=== PATIENT | female | born 1955 | race African-American/Black ===

== ENCOUNTER 2020-05-15 09:20 | Inpatient (IN) | payer BC ==
[2020-05-15] VITALS (8 sets, daily range): BP systolic 107–118; BP diastolic 77–88
[~2020-05-15] VITALS: Ht 172.7 cm; Wt 65.3 kg
[2020-05-15] MEDS ORDERED: ACETAMINOPHEN 325MG TABLET PO PRN (19:00)
[2020-05-15] MEDS ORDERED: DIPHENHYDRAMINE 50MG/ML VIAL IV PRN (19:00)
[2020-05-15] MEDS ORDERED: CLONIDINE 0.1MG TABLET PO PRN (19:00)
[2020-05-15] MEDS ORDERED: ONDANSETRON HCL 4MG/2ML INJ IV PRN (19:00)
[2020-05-15] MEDS ORDERED: FUROSEMIDE 40MG/4ML VIAL IVP NR (19:30)
[2020-05-15] MEDS ORDERED: HEPARIN XX SCH (20:30)
[2020-05-15] MEDS: GUAIFENESIN 200MG/10ML SUGAR FREE UDC PO PRN (20:52)
[2020-05-15] MEDS ORDERED: HEPARIN 25,000 UNITS PREMIX 250 ML IV PRN (21:00)
[2020-05-15] MEDS ORDERED: HEPARIN 5000 UNITS/ML VIAL IV PRN ×2 (21:00)
[2020-05-15 21:22] LABS: BASOPHILS % 1.2 % (0.0-2.0); EOSINOPHILS % 3.4 % (0.0-5.0); HEMOGLOBIN. 11.4 g/dL (12.0-16.0); LYMPHOCYTES % 16.5 % (20.0-50.0); MEAN CORPUSCULAR HEMOGLOBIN 28.7 pg (28.0-32.0); MEAN CORPUSCULAR VOLUME 85.7 fL (81.0-99.0); MEAN PLATELET VOLUME 7.6 fl (7.4-10.4); NEUTROPHILS % 68.9 % (40.0-76.0); PLATELET 313 x1000/uL (130-400); RED BLOOD CELL COUNT 3.97 mill/uL (4.2-5.4); RED CELL DISTRIBUTION WIDTH 14.2 % (11.6-14.6)
[2020-05-15 21:34] LABS: CHLORIDE 107 mEq/L (98-107); D-DIMER 4.06 mg/L FEU (<0.50); PARTIAL THROMBOPLASTIN TIME 24.8 sec (23.4-31.0); PROTHROMBIN TIME 10.9 sec (9.6-11.0)
[2020-05-15] MEDS ORDERED: DIAZEPAM 5 MG TABLET PO PRN (23:00)
[2020-05-15] MEDS ORDERED: POTASSIUM CHLORIDE 20MEQ/PACKET PO NR (23:00)
[2020-05-15] MEDS ORDERED: MAGNESIUM 2 G PREMIX 50 ML IV NR (23:30)
[2020-05-16] VITALS (42 sets, daily range): BP systolic 97–170; BP diastolic 16–111
[2020-05-16] MEDS: GUAIFENESIN 200MG/10ML SUGAR FREE UDC PO PRN (01:45)
[2020-05-16] MEDS: IPRATROPIUM/ALBUTEROL 0.5-3(2.5)MG/3ML NEB HHN PRN ×2 (02:26→05:37)
[2020-05-16] MEDS ORDERED: MAGNESIUM 1 G PREMIX 100 ML IV NR (03:00)
[2020-05-16 03:40] LABS: CLARITY URINE CLEAR (CLEAR); COLOR URINE YELLOW (YELLOW); KETONES URINE NEGATIVE (NEGATIVE); LEUKOCYTE ESTERASE URINE TRACE (NEGATIVE); NITRITE URINE NEGATIVE (NEGATIVE); OCCULT BLOOD URINE NEGATIVE (NEGATIVE); PROTEIN URINE NEGATIVE (NEGATIVE); SPECIFIC GRAVITY URINE 1.006 (1.005-1.030); UROBILINOGEN URINE 0.2 E.U./dL (0.2-1.0)
[2020-05-16 06:00] LABS: LDL CHOLESTEROL 78 mg/dL (5-100)
[2020-05-16 06:02] LABS: HDL CHOLESTEROL 59 mg/dL (40-59)
[2020-05-16] MEDS ORDERED: INSULIN REGULAR (DRIP) 100 UNITS in SODIUM CHLORIDE 0.9% 99 ML IV SCH (07:30)
[2020-05-16 08:31] LABS: BG BASE EXCESS 2.6 mmol/L (-2.0-2.0); BG CARBOXYHEMOGLOBIN 0.3 % (0.5-1.5); BG DEOXYHEMOGLOBIN 11.8 % (0.0-5.0); BG HCO3 ACT 27.1 mmol/L (22.0-26.0); BG METHEMOGLOBIN 0.2 % (0.0-1.5); BG OXYGEN SATURATION 88.1 % (92.0-98.5); BG OXYHEMOGLOBIN 87.7 % (94.0-97.0); BG PCO2 41.7 mmHg (35.0-45.0); BG PH 7.431 (7.350-7.450); BG PO2 54.7 mmHg (75.0-100.0); BG SAMPLE SITE RIGHT BRACHIAL; BG TOTAL HEMOGLOBIN 12.6 g/dL (12.0-18.0); BG VENT MODE ROOM AIR
[2020-05-16] MEDS ORDERED: LIDOCAINE HCL 1% 20ML VIAL (Pyxis) INJ ONE (09:40)
[2020-05-16 09:41] LABS: BASOPHILS % 0.8 % (0.0-2.0); EOSINOPHILS % 3.4 % (0.0-5.0); HEMATOCRIT. 36.6 % (36.0-48.0); HEMOGLOBIN. 11.9 g/dL (12.0-16.0); LYMPHOCYTES % 17.5 % (20.0-50.0); MEAN CORPUSCULAR HEMOGLOBIN 28.2 pg (28.0-32.0); MEAN CORPUSCULAR VOLUME 86.7 fL (81.0-99.0); MEAN PLATELET VOLUME 7.9 fl (7.4-10.4); MONOCYTES % 10.9 % (2.0-8.0); NEUTROPHILS % 67.4 % (40.0-76.0); PLATELET 327 x1000/uL (130-400); RED BLOOD CELL COUNT 4.22 mill/uL (4.2-5.4); RED CELL DISTRIBUTION WIDTH 14.5 % (11.6-14.6)
[2020-05-16 09:43] LABS: CHLORIDE 105 mEq/L (98-107)
[2020-05-16 09:49] LABS: PHOSPHORUS 3.2 mg/dL (2.5-4.9)
[2020-05-16] MEDS ORDERED: THROMBIN (BOVINE) 5000 UNITS/VIAL TOP ONE (10:42)
[2020-05-16] MEDS ORDERED: BACITRACIN 50,000 UNITS/VIAL ONE (10:43)
[2020-05-16] MEDS ORDERED: SKIN ADHESIVE 0.7 GM EA TOP ONE (11:04)
[2020-05-16] MEDS ORDERED: BUPIVACAINE HCL/PF 0.5% (5MG/ML) 10ML ONE (11:26)
[2020-05-16] MEDS ORDERED: EPINEPHRINE 5 MG in DEXT 5% WATER 245 ML IV ONE (12:00)
[2020-05-16] MEDS ORDERED: DEL NIDO ELECTROLYTE-S(PH 7.4) 1,000 ML IV ONE ×2 (12:00)
[2020-05-16] MEDS ORDERED: NOREPINEPHRINE 8 MG in DEXT 5% WATER 242 ML IV ONE (12:00)
[2020-05-16] MEDS ORDERED: CEFAZOLIN 2,000 MG in DEXT 5% WATER 100 ML IV SCH (12:00)
[2020-05-16] MEDS ORDERED: ROCURONIUM BROMIDE 10MG/ML VIAL 5ML IV ONE (12:09)
[2020-05-16] MEDS ORDERED: HYDROMORPHONE HCL/PF 2MG/ML (OR) ONE (12:10)
[2020-05-16] MEDS ORDERED: DEXAMETHASONE 4MG/ML 1ML VIAL ONE (12:21)
[2020-05-16] MEDS ORDERED: ALBUMIN HUMAN 25GM/100ML (25%) IV ONE (12:54)
[2020-05-16] MEDS ORDERED: NEOSTIGMINE METHYLSULFATE 1MG/ML 10 ML VIAL ONE (13:43)
[2020-05-16] MEDS ORDERED: GLYCOPYRROLATE 0.2 MG/ML 2ML VIAL ONE (13:43)
[2020-05-16] MEDS ORDERED: ALBUMIN HUMAN 25GM/100ML (25%) IV PRN (14:00)
[2020-05-16] MEDS ORDERED: ACETAMINOPHEN 325MG TABLET PO PRN (14:00)
[2020-05-16] MEDS ORDERED: ALBUMIN HUMAN 12.5G/250ML (5%) IV PRN (14:00)
[2020-05-16] MEDS ORDERED: HYDROMORPHONE HCL/PF 2MG/ML CPJ IV PRN (14:00)
[2020-05-16] MEDS ORDERED: ONDANSETRON HCL 4MG/2ML INJ IV PRN (14:00)
[2020-05-16] MEDS ORDERED: KETOROLAC 30MG/ML VIAL IV SCH (14:00)
[2020-05-16 14:06] LABS: BG BASE EXCESS -3.6 mmol/L (-2.0-2.0); BG CARBOXYHEMOGLOBIN 0.5 % (0.5-1.5); BG DEOXYHEMOGLOBIN 9.5 % (0.0-5.0); BG FRACTION INSPIRED OXYGEN 40; BG HCO3 ACT 22.3 mmol/L (22.0-26.0); BG METHEMOGLOBIN 0.3 % (0.0-1.5); BG OXYGEN SATURATION 90.4 % (92.0-98.5); BG OXYHEMOGLOBIN 89.7 % (94.0-97.0); BG PCO2 43.5 mmHg (35.0-45.0); BG PH 7.328 (7.350-7.450); BG PO2 66.4 mmHg (75.0-100.0); BG SAMPLE SITE ALINE; BG TOTAL HEMOGLOBIN 12.2 g/dL (12.0-18.0); BG TOTAL RESPIRATORY RATE 16 b/min; BG VENT MODE MASK - SIMPLE
[2020-05-16 14:41] LABS: HEMATOCRIT. 35.3 % (36.0-48.0); HEMOGLOBIN. 11.5 g/dL (12.0-16.0); MEAN CORPUSCULAR HEMOGLOBIN 27.7 pg (28.0-32.0); MEAN PLATELET VOLUME 7.3 fl (7.4-10.4); PLATELET 316 x1000/uL (130-400); RED BLOOD CELL COUNT 4.15 mill/uL (4.2-5.4); RED CELL DISTRIBUTION WIDTH 14.4 % (11.6-14.6)
[2020-05-16 14:47] LABS: CHLORIDE 108 mEq/L (98-107)
[2020-05-16] MEDS: MAGNESIUM HYDROXIDE 400MG/5ML 30ML UDC PO SCH ×3 (16:07→21:54)
[2020-05-16] MEDS: DOCUSATE SODIUM 100MG CAPSULE PO SCH (16:07)
[2020-05-16] MEDS: CEFAZOLIN 1000MG PREMIX 50 ML IV SCH ×2 (16:07→21:54)
[2020-05-16] MEDS: FAMOTIDINE 20MG/2ML VIAL IV SCH (16:07)
[2020-05-16] MEDS ORDERED: KCL 10MEQ/50ML PREMIX 200 ML IV PRN (16:15)
[2020-05-16] MEDS ORDERED: KCL 10MEQ/50ML PREMIX 150 ML IV PRN (16:15)
[2020-05-16] MEDS: MORPHINE SULFATE 2 MG/ML CPJ (NOT FOR IM USE) IV PRN (16:39)
[2020-05-16] MEDS: KCL 10MEQ/50ML PREMIX 100 ML IV PRN (16:39)
[2020-05-16] MEDS: MAGNESIUM 1 G PREMIX 100 ML IV PRN ×2 (16:57→20:32)
[2020-05-16] MEDS: BACITRACIN 15GM TUBE TOP SCH (17:00)
[2020-05-16] MEDS: IPRATROPIUM/ALBUTEROL 0.5-3(2.5)MG/3ML NEB HHN SCH ×2 (18:42→21:00)
[2020-05-16] MEDS: KETOROLAC 30MG/ML VIAL IV PRN (19:35)
[2020-05-16] MEDS: OXYCODONE HCL/ACETAMINOPHEN 5/325MG TABLET PO PRN (22:01)
[2020-05-16 22:47] LABS: PLATELET ESTIMATE NORMAL
[2020-05-17] VITALS (31 sets, daily range): BP systolic 82–129; BP diastolic 40–103
[2020-05-17] MEDS: IPRATROPIUM/ALBUTEROL 0.5-3(2.5)MG/3ML NEB HHN SCH ×6 (00:16→20:20)
[2020-05-17] MEDS: MORPHINE SULFATE 2 MG/ML CPJ (NOT FOR IM USE) IV PRN ×2 (00:19→04:48)
[2020-05-17] MEDS: MAGNESIUM HYDROXIDE 400MG/5ML 30ML UDC PO SCH ×4 (04:47→14:08)
[2020-05-17 05:58] LABS: BASOPHILS % 0.4 % (0.0-2.0); HEMATOCRIT. 37.3 % (36.0-48.0); HEMOGLOBIN. 12.4 g/dL (12.0-16.0); LYMPHOCYTES % 7.6 % (20.0-50.0); MEAN CORPUSCULAR VOLUME 84.5 fL (81.0-99.0); MEAN PLATELET VOLUME 7.5 fl (7.4-10.4); PLATELET 328 x1000/uL (130-400); RED BLOOD CELL COUNT 4.41 mill/uL (4.2-5.4); RED CELL DISTRIBUTION WIDTH 14.5 % (11.6-14.6)
[2020-05-17] MEDS ORDERED: MAGNESIUM 2 G PREMIX 50 ML IV PRN (06:00)
[2020-05-17] MEDS ORDERED: MAGNESIUM SULFATE 3 GM in DEXT 5% WATER 100 ML IV PRN (06:00)
[2020-05-17] MEDS: OXYCODONE HCL/ACETAMINOPHEN 5/325MG TABLET PO PRN ×4 (06:54→22:43)
[2020-05-17 06:59] LABS: CHLORIDE 104 mEq/L (98-107)
[2020-05-17] MEDS: CEFAZOLIN 1000MG PREMIX 50 ML IV SCH (07:05)
[2020-05-17] MEDS: FAMOTIDINE 20MG/2ML VIAL IV SCH (08:23)
[2020-05-17] MEDS: LEVOTHYROXINE SODIUM 125MCG TABLET PO SCH (08:24)
[2020-05-17] MEDS: DOCUSATE SODIUM 100MG CAPSULE PO SCH ×2 (08:24→17:22)
[2020-05-17] MEDS: BACITRACIN 15GM TUBE TOP SCH ×2 (09:00→17:00)
[2020-05-17] MEDS: MAGNESIUM 1 G PREMIX 100 ML IV PRN (09:05)
[2020-05-17] MEDS ORDERED: LEVO125T PO (09:11)
[2020-05-17] MEDS ORDERED: ESOM40CA PO (09:11)
[2020-05-17] MEDS: KCL 10MEQ/50ML PREMIX 100 ML IV PRN ×2 (09:16→11:12)
[2020-05-17] MEDS: GUAIFENESIN 200MG/10ML SUGAR FREE UDC PO PRN (09:37)
[2020-05-17] MEDS ORDERED: FUROSEMIDE 40MG/4ML VIAL IVP SCH (11:15)
[2020-05-17] MEDS ORDERED: HEPARIN 25,000 UNITS PREMIX 250 ML IV SCH (11:15)
[2020-05-17] MEDS ORDERED: WARFARIN SODIUM 2.5MG TABLET PO ONE (11:15)
[2020-05-17 11:25] LABS: BG BASE EXCESS 2.6 mmol/L (-2.0-2.0); BG CARBOXYHEMOGLOBIN 0.3 % (0.5-1.5); BG DEOXYHEMOGLOBIN 5.5 % (0.0-5.0); BG FRACTION INSPIRED OXYGEN 32; BG METHEMOGLOBIN 0.4 % (0.0-1.5); BG OXYGEN SATURATION 94.5 % (92.0-98.5); BG OXYHEMOGLOBIN 93.8 % (94.0-97.0); BG PCO2 40.6 mmHg (35.0-45.0); BG PO2 70.1 mmHg (75.0-100.0); BG SAMPLE SITE ALINE; BG TOTAL HEMOGLOBIN 13.3 g/dL (12.0-18.0); BG VENT MODE NASAL CANNULA
[2020-05-17] MEDS ORDERED: HEPARIN 5000 UNITS/ML VIAL IV PRN ×2 (11:30)
[2020-05-17] MEDS: HEPARIN 25,000 UNITS PREMIX 250 ML IV PRN (13:23)
[2020-05-17] MEDS: KETOROLAC 30MG/ML VIAL IV PRN (13:35)
[2020-05-17] MEDS: ACETYLCYSTEINE 100MG/ML 10% VIAL 4ML INH SCH (15:53)
[2020-05-17] MEDS ORDERED: WARFARIN SODIUM 5MG TABLET PO SCH (18:00)
[2020-05-18] VITALS (13 sets, daily range): BP systolic 94–115; BP diastolic 67–76
[2020-05-18] MEDS: IPRATROPIUM/ALBUTEROL 0.5-3(2.5)MG/3ML NEB HHN SCH ×8 (00:20→20:59)
[2020-05-18] MEDS: ACETYLCYSTEINE 100MG/ML 10% VIAL 4ML INH SCH ×3 (00:21→08:20)
[2020-05-18] MEDS: OXYCODONE HCL/ACETAMINOPHEN 5/325MG TABLET PO PRN ×5 (03:35→19:43)
[2020-05-18] MEDS: LEVOTHYROXINE SODIUM 125MCG TABLET PO SCH (06:22)
[2020-05-18 06:46] LABS: BASOPHILS % 0.8 % (0.0-2.0); EOSINOPHILS % 2.7 % (0.0-5.0); HEMATOCRIT. 37.4 % (36.0-48.0); HEMOGLOBIN. 12.1 g/dL (12.0-16.0); LYMPHOCYTES % 22.9 % (20.0-50.0); MEAN CORPUSCULAR HEMOGLOBIN 27.7 pg (28.0-32.0); MEAN CORPUSCULAR VOLUME 85.2 fL (81.0-99.0); MEAN PLATELET VOLUME 7.7 fl (7.4-10.4); MONOCYTES % 6.3 % (2.0-8.0); NEUTROPHILS % 67.3 % (40.0-76.0); PLATELET 328 x1000/uL (130-400); RED BLOOD CELL COUNT 4.39 mill/uL (4.2-5.4); RED CELL DISTRIBUTION WIDTH 14.7 % (11.6-14.6)
[2020-05-18 06:55] LABS: INR 1.1; PROTHROMBIN TIME 11.7 sec (9.6-11.0)
[2020-05-18 07:32] LABS: CHLORIDE 101 mEq/L (98-107)
[2020-05-18 07:53] LABS: PARTIAL THROMBOPLASTIN TIME 66.6 sec (23.4-31.0)
[2020-05-18] MEDS: FAMOTIDINE 20MG/2ML VIAL IV SCH (08:53)
[2020-05-18] MEDS: DOCUSATE SODIUM 100MG CAPSULE PO SCH ×2 (09:00→16:19)
[2020-05-18] MEDS: BACITRACIN 15GM TUBE TOP SCH ×2 (09:00→16:18)
[2020-05-18] MEDS ORDERED: KCL 20MEQ/100ML PREMIX 100 ML IV PRN (09:45)
[2020-05-18] MEDS: HEPARIN 25,000 UNITS PREMIX 250 ML IV PRN (10:41)
[2020-05-18] MEDS ORDERED: FUROSEMIDE 40MG/4ML VIAL IVP ONE (12:45)
[2020-05-18] MEDS: GUAIFENESIN 200MG/10ML SUGAR FREE UDC PO PRN (13:43)
[2020-05-18] MEDS ORDERED: APIXABAN 5 MG TABLET PO SCH (16:00)
[2020-05-18] MEDS ORDERED: TRAMADOL 50MG TABLET PO PRN (16:15)
[2020-05-18] MEDS: FOLIC ACID 1MG TABLET PO SCH (17:17)
[2020-05-18] MEDS: THIAMINE HCL 100MG TABLET PO SCH (17:17)
[2020-05-18] MEDS ORDERED: PHENOL/SODIUM PHENOLATE 1.4% SRPAY 177ML MM NR (18:00)
[2020-05-18] MEDS ORDERED: WARFARIN SODIUM 5MG TABLET PO SCH (18:00)
[2020-05-18] MEDS: [UNRECOGNIZED DRUG - OTHER] SSP SCH (21:00)
[2020-05-19] VITALS (12 sets, daily range): BP systolic 91–125; BP diastolic 60–81
[2020-05-19] MEDS: ACETYLCYSTEINE 100MG/ML 10% VIAL 4ML INH SCH (02:38)
[2020-05-19] MEDS: IPRATROPIUM/ALBUTEROL 0.5-3(2.5)MG/3ML NEB HHN SCH ×2 (02:38→20:29)
[2020-05-19] MEDS: OXYCODONE HCL/ACETAMINOPHEN 5/325MG TABLET PO PRN ×4 (04:32→19:31)
[2020-05-19] MEDS: LEVOTHYROXINE SODIUM 125MCG TABLET PO SCH (06:19)
[2020-05-19] MEDS ORDERED: APIXABAN 5 MG TABLET PO SCH (08:00)
[2020-05-19] MEDS: FUROSEMIDE 40MG TABLET PO SCH (08:30)
[2020-05-19] MEDS: FAMOTIDINE 20MG/2ML VIAL IV SCH (08:30)
[2020-05-19] MEDS: THIAMINE HCL 100MG TABLET PO SCH (08:31)
[2020-05-19] MEDS: FOLIC ACID 1MG TABLET PO SCH (08:31)
[2020-05-19] MEDS: DOCUSATE SODIUM 100MG CAPSULE PO SCH ×2 (08:31→16:20)
[2020-05-19] MEDS: BACITRACIN 15GM TUBE TOP SCH ×2 (09:00→16:18)
[2020-05-19] MEDS: [UNRECOGNIZED DRUG - OTHER] SSP SCH ×4 (09:11→21:11)
[2020-05-19 09:15] LABS: BASOPHILS % 0.8 % (0.0-2.0); EOSINOPHILS % 3.2 % (0.0-5.0); HEMATOCRIT. 39.7 % (36.0-48.0); HEMOGLOBIN. 13.1 g/dL (12.0-16.0); LYMPHOCYTES % 12.1 % (20.0-50.0); MEAN CORPUSCULAR HEMOGLOBIN 27.6 pg (28.0-32.0); MEAN CORPUSCULAR VOLUME 83.5 fL (81.0-99.0); MEAN PLATELET VOLUME 7.7 fl (7.4-10.4); MONOCYTES % 6.3 % (2.0-8.0); NEUTROPHILS % 77.6 % (40.0-76.0); PLATELET 357 x1000/uL (130-400); RED BLOOD CELL COUNT 4.76 mill/uL (4.2-5.4); RED CELL DISTRIBUTION WIDTH 14.5 % (11.6-14.6)
[2020-05-19 09:26] LABS: CHLORIDE 99 mEq/L (98-107)
[2020-05-19 09:27] LABS: INR 1.1; PROTHROMBIN TIME 12.2 sec (9.6-11.0)
[2020-05-19] MEDS: APIXABAN 5 MG TABLET PO SCH (16:20)
[2020-05-20] VITALS (12 sets, daily range): BP systolic 93–126; BP diastolic 61–74
[2020-05-20] MEDS: OXYCODONE HCL/ACETAMINOPHEN 5/325MG TABLET PO PRN ×4 (00:03→18:49)
[2020-05-20] MEDS: IPRATROPIUM/ALBUTEROL 0.5-3(2.5)MG/3ML NEB HHN SCH ×6 (00:23→20:38)
[2020-05-20] MEDS: LEVOTHYROXINE SODIUM 125MCG TABLET PO SCH (06:29)
[2020-05-20 08:26] LABS: INR 1.1
[2020-05-20] MEDS: DOCUSATE SODIUM 100MG CAPSULE PO SCH ×2 (08:39→16:20)
[2020-05-20] MEDS: FAMOTIDINE 20MG TABLET PO SCH (08:40)
[2020-05-20] MEDS: FUROSEMIDE 40MG TABLET PO SCH (08:40)
[2020-05-20] MEDS: FOLIC ACID 1MG TABLET PO SCH (08:40)
[2020-05-20] MEDS: APIXABAN 5 MG TABLET PO SCH ×2 (08:40→16:20)
[2020-05-20] MEDS: THIAMINE HCL 100MG TABLET PO SCH (08:40)
[2020-05-20] MEDS: [UNRECOGNIZED DRUG - OTHER] SSP SCH ×4 (08:46→20:27)
[2020-05-20] MEDS: GUAIFENESIN 200MG/10ML SUGAR FREE UDC PO PRN ×3 (08:49→20:29)
[2020-05-20] MEDS: BACITRACIN 15GM TUBE TOP SCH ×2 (09:00→16:17)
[2020-05-20] MEDS ORDERED: PROM6.2514 MT (12:10)
[2020-05-21] MEDS: IPRATROPIUM/ALBUTEROL 0.5-3(2.5)MG/3ML NEB HHN SCH ×4 (00:31→12:35)
[2020-05-21 01:02] VITALS: BP 108/68
[2020-05-21 02:11] VITALS: BP 112/77
[2020-05-21] MEDS: OXYCODONE HCL/ACETAMINOPHEN 5/325MG TABLET PO PRN ×3 (02:17→13:49)
[2020-05-21] MEDS: LEVOTHYROXINE SODIUM 125MCG TABLET PO SCH (06:07)
[2020-05-21 06:08] VITALS: BP 116/65
[2020-05-21 07:09] LABS: BASOPHILS % 0.8 % (0.0-2.0); EOSINOPHILS % 3.3 % (0.0-5.0); HEMATOCRIT. 36.4 % (36.0-48.0); HEMOGLOBIN. 12.1 g/dL (12.0-16.0); LYMPHOCYTES % 10.5 % (20.0-50.0); MEAN CORPUSCULAR HEMOGLOBIN 28.1 pg (28.0-32.0); MEAN CORPUSCULAR VOLUME 84.3 fL (81.0-99.0); MEAN PLATELET VOLUME 7.4 fl (7.4-10.4); MONOCYTES % 12.8 % (2.0-8.0); NEUTROPHILS % 72.6 % (40.0-76.0); PLATELET 349 x1000/uL (130-400); RED BLOOD CELL COUNT 4.31 mill/uL (4.2-5.4); RED CELL DISTRIBUTION WIDTH 14.8 % (11.6-14.6)
[2020-05-21 07:21] LABS: CHLORIDE 99 mEq/L (98-107)
[2020-05-21 08:57] VITALS: BP 90/71
[2020-05-21] MEDS: FOLIC ACID 1MG TABLET PO SCH (08:58)
[2020-05-21] MEDS: FAMOTIDINE 20MG TABLET PO SCH (08:58)
[2020-05-21] MEDS: THIAMINE HCL 100MG TABLET PO SCH (08:58)
[2020-05-21] MEDS: APIXABAN 5 MG TABLET PO SCH (08:58)
[2020-05-21] MEDS: DOCUSATE SODIUM 100MG CAPSULE PO SCH (09:00)
[2020-05-21] MEDS: BACITRACIN 15GM TUBE TOP SCH (09:00)
[2020-05-21] MEDS: FUROSEMIDE 40MG TABLET PO SCH (09:00)
[2020-05-21] MEDS: GUAIFENESIN 200MG/10ML SUGAR FREE UDC PO PRN (10:33)
[2020-05-21] MEDS ORDERED: APIX5TAB PO (11:37)
[2020-05-21] MEDS ORDERED: FURO40TA5 PO (11:37)
[2020-05-21] MEDS ORDERED: OXYC1TAB21 PO (11:37)
[2020-05-21] MEDS ORDERED: FAMO20TA8 PO (11:37)
[2020-05-21] MEDS ORDERED: LEVO125T8 PO (11:37)
[2020-05-21] MEDS ORDERED: TRAM50TA3 PO (11:37)
[2020-05-21 12:59] VITALS: BP 104/80
[2020-05-21 13:49] VITALS: BP 111/86
== END 2020-05-21 15:00 | disposition home or self-care (01) | DRG 270 ==
LOC: CVICU 09:20 → 3WST 05-17 15:35
PROVIDERS: ADMIT Internal Medicine; ATTEND Internal Medicine
PROC: 0W9D00Z Drainage of Pericardial Cavity with Drainage Device, Open Approach (ICD-10-PCS; principal; 2020-05-16)
PROC: 05HY33Z Insertion of Infusion Device into Upper Vein, Percutaneous Approach (ICD-10-PCS; 2020-05-16)
PROC: B54MZZA Ultrasonography of Right Upper Extremity Veins, Guidance (ICD-10-PCS; 2020-05-16)
DX: I31.3 Pericardial effusion (noninflammatory) (principal); I26.99 Other pulmonary embolism without acute cor pulmonale; I50.33 Acute on chronic diastolic (congestive) heart failure; C34.92 Malignant neoplasm of unspecified part of left bronchus or lung; I42.2 Other hypertrophic cardiomyopathy; I31.4 Cardiac tamponade; E03.9 Hypothyroidism, unspecified; F17.210 Nicotine dependence, cigarettes, uncomplicated; F10.20 Alcohol dependence, uncomplicated; J45.909 Unspecified asthma, uncomplicated; J44.9 Chronic obstructive pulmonary disease, unspecified; I11.0 Hypertensive heart disease with heart failure; D72.829 Elevated white blood cell count, unspecified; I07.1 Rheumatic tricuspid insufficiency; Z90.710 Acquired absence of both cervix and uterus; G89.4 Chronic pain syndrome; Z87.19 Personal history of other diseases of the digestive system; Z20.822 Contact with and (suspected) exposure to COVID-19; Z79.01 Long term (current) use of anticoagulants; Z79.890 Hormone replacement therapy; Z82.49 Family history of ischemic heart disease and other diseases of the circulatory system; Z79.899 Other long term (current) drug therapy
CPT/HCPCS: 36415; 36600; 71045; 71250; 76937; 80048; 80053; 80061; 81003; 82375; 82378; 82805; 83735; 84100; 84443; 84484; 85025; 85379; 86850; 86900; 87070; 87075; 87116; 87426; 88108; 88305; 88312; 93005; 93306; 94618; 94640; 97162; 97166; 97530; C1725; J0690; J1100; J1170; J1644; J1815; J1885; J1940; J2270; J2710; J3475; J3480; J3490; J7040; J7050; J7060; J7608; P9047